=== PATIENT | male | born 1950 | race Caucasian/White ===

== ENCOUNTER → 2021-02-15 10:26 | Outpatient (CLI) | payer BC, MEDICARE, OTHER, SELFPAY ==
--- NOTE | 2021-02-15 | DI.RAD.S_ITS ---
PROCEDURE: XR THORACIC SPINE 3V INDICATIONS: Arthrodesis status TECHNIQUE: 3 views of the thoracic spine were acquired. COMPARISON: None. FINDINGS: Bones: Upper thoracic paraspinal tommie and pedicle screw fixation appears grossly intact. Expected post operative alignment. Soft tissues: No paravertebral stripe thickening. IMPRESSION: Intact upper thoracic posterior spinal fixation, in expected alignment. Dictated by: Ehsan Herrera M.D. on 02/15/2021 at 13:08 Approved by: Ehsan Herrera M.D. on 02/15/2021 at 13:11
== END ==
PROVIDERS: Family Provider Family Medicine; PCP Family Medicine; Referring Provider Neurological Surgery; Visit Provider Neurological Surgery
DX: Z98.1 Arthrodesis status (principal); Z09 Encounter for follow-up examination after completed treatment for conditions other than malignant neoplasm
CPT/HCPCS: 72072